=== PATIENT | female | born 1965 | race Caucasian/White ===

== ENCOUNTER 2016-07-05 14:14 | Emergency (ER) | payer OTHER ==
[~2016-07-05] VITALS: Ht 175.3 cm; Wt 75.7 kg
[2016-07-05 14:44] VITALS: BP 161/103
== END 2016-07-05 17:35 | disposition left against medical advice (07) ==
LOC: ED 14:14
DX: Z53.21 Procedure and treatment not carried out due to patient leaving prior to being seen by health care provider (principal)

== ENCOUNTER 2016-10-10 13:03 | Emergency (ER) | payer OTHER ==
[2016-10-10 13:11] VITALS: BP 163/83
== END 2016-10-10 15:20 | disposition left against medical advice (07) ==
LOC: ED 13:03
DX: Z53.21 Procedure and treatment not carried out due to patient leaving prior to being seen by health care provider (principal)

== ENCOUNTER 2017-08-01 10:41 | Emergency (ER) | payer OTHER ==
[~2017-08-01] VITALS: Ht 175.3 cm; Wt 81.6 kg
[2017-08-01 11:02] VITALS: Ht 175.3 cm; Wt 81.6 kg
[2017-08-01 12:05] LABS: BASOPHIL % 0.6 % (0-2); PLATELET COUNT 197 x10^3mcL (130-400)
[2017-08-01 12:06] LABS: CALCIUM 8.9 mg/dL (8.5-10.1); CARBON DIOXIDE 32.4 mmol/L (21-32); CREATININE SERUM 1.1 mg/dL (0.6-1.0); POTASSIUM SERUM 3.9 mmol/L (3.5-5.1)
[2017-08-01 12:10] LABS: ALBUMIN 3.8 g/dL (3.4-5.0); BILIRUBIN TOTAL 0.3 mg/dL (0.20-1.00); TOTAL PROTEIN, SERUM 7.2 g/dL (6.4-8.2)
[2017-08-01 13:56] VITALS: BP 132/93
== END 2017-08-01 13:56 | disposition home or self-care (01) ==
LOC: ED 10:41
PROVIDERS: Specialist
DX: R10.32 Left lower quadrant pain (principal); Z88.5 Allergy status to narcotic agent; Z90.49 Acquired absence of other specified parts of digestive tract
CPT/HCPCS: 36415; 83880

== ENCOUNTER 2018-08-17 14:29 | Emergency (ER) | payer OTHER ==
[~2018-08-17] VITALS: Ht 175.3 cm; Wt 83.0 kg
[2018-08-17 14:38] VITALS: Ht 175.3 cm; Wt 83.0 kg
[2018-08-17 16:39] VITALS: BP 140/97
== END 2018-08-17 16:39 | disposition home or self-care (01) ==
LOC: ED 14:29
DX: G89.29 Other chronic pain (principal); M79.675 Pain in left toe(s); F17.210 Nicotine dependence, cigarettes, uncomplicated; Z88.5 Allergy status to narcotic agent; Z90.711 Acquired absence of uterus with remaining cervical stump; Z90.49 Acquired absence of other specified parts of digestive tract; Z98.890 Other specified postprocedural states
CPT/HCPCS: 99406

== ENCOUNTER 2019-05-21 12:01 | Emergency (ER) | payer OTHER ==
[~2019-05-21] VITALS: Ht 175.3 cm; Wt 83.5 kg
[2019-05-21 12:15] VITALS: BP 140/92; Ht 175.3 cm; Wt 83.5 kg
== END 2019-05-21 16:10 | disposition left against medical advice (07) ==
LOC: ED 12:01
DX: M79.645 Pain in left finger(s) (principal)